=== PATIENT | male | born 1965 | race Caucasian/White ===

== ENCOUNTER 2018-03-04 07:46 | Day surgery (SDC) | payer OTHER ==
[2018-03-03 12:40] VITALS: BMI 36.6
--- NOTE | 2018-03-04 10:33 | CP.SDSHP ---
Same Day Surgery H & P - History Proposed Procedure: COLONSCOPY Pre-Op Diagnosis: SEE NOTES - Previous Medical/Surgical History Misc: Other Pain: 2.Mild Pain - Allergies Allergies: Allergies No Known Allergies Allergy (Verified 03/03/18 12:40) - Physical Exam General Appearance: N Vital Signs: Vital Signs 03/04/18 08:27 Temperature 97.8 F Pulse Rate 70 Respiratory 19 Rate Blood Pressure 109/68 O2 Sat by Pulse 99 Oximetry Mental Status: Alert & Oriented x3 Neuro: WNL Heart: WNL Lungs: WNL GI: WNL - {Optional Preform as Required} Breast: WNL Abdomen: Other Rectal: Other Integument: WNL : WNL Ortho: Other ENT: WNL - Impression Pt. Evaluated Today:Candidate for Anesthesia & Procedure: Yes - Date & Time Time: 10:32 Short Stay Discharge - Short Stay Discharge Admitting Diagnosis/Reason for Visit: SCREENING Disposition: HOME/ ROUTINE
[2018-03-04] MEDS ORDERED: Propofol 10 mg/ml Inj (20 ML) ONE (10:46)
[2018-03-04] MEDS ORDERED: Belladonna-Phenobarbital PO ONE (11:10)
[2018-03-04 12:40] VITALS: BP 113/73; PULSE 57; RESP 12; O2SAT 100
[2018-03-04 14:15] VITALS: TEMP 98
== END 2018-03-04 12:10 | disposition home or self-care (01) ==
LOC: C.ENDO 07:46
PROVIDERS: ATTEND Specialist
DX: K52.9 Noninfective gastroenteritis and colitis, unspecified (principal); K64.8 Other hemorrhoids
CPT/HCPCS: 45380; 88305; J2704